=== PATIENT | male | born 1990 | race Caucasian/White ===

== ENCOUNTER 2021-04-14 11:06 | Emergency (ER) | payer MEDICAID, OTHER ==
[~2021-04-14] VITALS: Ht 172.7 cm; Wt 73.0 kg
[2021-04-14] MEDS ORDERED: ONDANSETRON HCL 4MG/2ML INJ IV ONE (11:45)
[2021-04-14] MEDS ORDERED: LORAZEPAM 2MG/ML CPJ IV ONE (11:45)
[2021-04-14] MEDS ORDERED: SODIUM CHLORIDE 0.9% 1,000 ML IV ONE (11:45)
[2021-04-14 11:58] LABS: BASOPHILS % 0.2 % (0.0-2.0); HEMATOCRIT. 46.5 % (42.0-52.0); HEMOGLOBIN. 16.1 g/dL (14.0-18.0); MEAN CORPUSCULAR HEMOGLOBIN 30.3 pg (28.0-32.0); MEAN CORPUSCULAR VOLUME 87.7 fL (80.0-94.0); MONOCYTES % 2.1 % (2.0-8.0); NEUTROPHILS % 86.7 % (40.0-76.0); PLATELET 238 x1000/uL (130-400); RED CELL DISTRIBUTION WIDTH 13.9 % (11.6-14.6)
[2021-04-14 12:02] LABS: CHLORIDE 108 mEq/L (98-107)
[2021-04-14 12:06] LABS: ETHANOL BLOOD < 10 mg/dL
[2021-04-14 12:16] LABS: *AMPHETAMINES SCREEN URINE NEGATIVE (NEGATIVE)
[2021-04-14 12:17] LABS: *BARBITURATES SCREEN URINE NEGATIVE (NEGATIVE); *COCAINE SCREEN URINE PRESUMTIVE POSITIVE (NEGATIVE); CANNABINOID URINE SCREEN PRESUMTIVE POSITIVE (NEGATIVE); METHADONE URINE SCREEN NEGATIVE (NEGATIVE); OPIATES URINE SCREEN PRESUMTIVE POSITIVE (NEGATIVE); PHENCYCLIDINE URINE SCREEN NEGATIVE (NEGATIVE)
[2021-04-14 12:20] LABS: *BENZODIAZEPINES SCREEN URINE PRESUMTIVE POSITIVE (NEGATIVE)
[2021-04-14] MEDS ORDERED: KETOROLAC 30MG/ML VIAL IV ONE (12:30)
[2021-04-14] MEDS ORDERED: LORA-250 MT (12:43)
[2021-04-14] MEDS ORDERED: ONDA4TAB5 MT (12:43)
[2021-04-14] MEDS ORDERED: LOPE2CAP MT (12:43)
[2021-04-14 13:45] VITALS: BP 124/81
== END 2021-04-14 13:49 | disposition home or self-care (01) ==
LOC: ER 11:06
DX: F14.23 Cocaine dependence with withdrawal (principal); F11.23 Opioid dependence with withdrawal; R11.10 Vomiting, unspecified; F16.10 Hallucinogen abuse, uncomplicated; F17.210 Nicotine dependence, cigarettes, uncomplicated
CPT/HCPCS: 36415; 80048; 80305; 80307; 80320; 80329; 85025; 96361; 96374; 96375; 99284; J1885; J2060; J2405; J7030; Z7610; G0480

== ENCOUNTER 2022-07-18 23:09 | Emergency (ER) | payer MEDICAID ==
[~2022-07-18] VITALS: Ht 172.7 cm; Wt 79.0 kg
[~2022-07-18 23:09] MED LIST: LOPE2CAP MT; LORA-250 MT; ONDA4TAB5 MT
[2022-07-18] MEDS ORDERED: KETOROLAC 30MG/ML VIAL IV STA (23:41)
[2022-07-18] MEDS ORDERED: SODIUM CHLORIDE 0.9% 1,000 ML IV ONE (23:45)
[2022-07-19 00:09] LABS: BASOPHILS % 0.7 % (0.0-2.0); EOSINOPHILS % 1.8 % (0.0-5.0); HEMATOCRIT. 40.1 % (42.0-52.0); HEMOGLOBIN. 13.6 g/dL (14.0-18.0); LYMPHOCYTES % 14.7 % (20.0-50.0); MEAN CORPUSCULAR HEMOGLOBIN 29.8 pg (28.0-32.0); MEAN CORPUSCULAR VOLUME 87.9 fL (80.0-94.0); MEAN PLATELET VOLUME 8.7 fl (7.4-10.4); MONOCYTES % 4.1 % (2.0-8.0); NEUTROPHILS % 78.7 % (40.0-76.0); PLATELET 236 x1000/uL (130-400); RED BLOOD CELL COUNT 4.56 mill/uL (4.7-6.1); RED CELL DISTRIBUTION WIDTH 13.8 % (11.6-14.6)
[2022-07-19 00:27] LABS: CHLORIDE 107 mEq/L (98-107)
[2022-07-19 00:35] LABS: ETHANOL BLOOD < 10 mg/dL
[2022-07-19 01:20] LABS: CLARITY URINE CLEAR (CLEAR); COLOR URINE YELLOW (YELLOW); KETONES URINE NEGATIVE (NEGATIVE); LEUKOCYTE ESTERASE URINE NEGATIVE (NEGATIVE); NITRITE URINE NEGATIVE (NEGATIVE); OCCULT BLOOD URINE NEGATIVE (NEGATIVE); PROTEIN URINE NEGATIVE (NEGATIVE); SPECIFIC GRAVITY URINE 1.009 (1.005-1.030); UROBILINOGEN URINE 0.2 E.U./dL (0.2-1.0)
[2022-07-19 01:52] LABS: *AMPHETAMINES SCREEN URINE NEGATIVE (NEGATIVE); *BARBITURATES SCREEN URINE NEGATIVE (NEGATIVE); *BENZODIAZEPINES SCREEN URINE NEGATIVE (NEGATIVE); *COCAINE SCREEN URINE NEGATIVE (NEGATIVE); CANNABINOID URINE SCREEN NEGATIVE (NEGATIVE); METHADONE URINE SCREEN NEGATIVE (NEGATIVE); OPIATES URINE SCREEN PRESUMTIVE POSITIVE (NEGATIVE); PHENCYCLIDINE URINE SCREEN NEGATIVE (NEGATIVE)
[2022-07-19] MEDS ORDERED: IOHEXOL-300 100 ML BOTTLE ONE (03:12)
[2022-07-19] MEDS ORDERED: MORPHINE SULFATE 4 MG/ML CPJ (NOT FOR IM USE) IV NR (04:15)
[2022-07-19 08:12] VITALS: BP 110/60
== END 2022-07-19 08:05 | disposition left against medical advice (07) ==
LOC: ER 07-19 00:01 → CANBEDREQ 07-19 08:16
DX: K56.609 Unspecified intestinal obstruction, unspecified as to partial versus complete obstruction (principal); F14.10 Cocaine abuse, uncomplicated; F11.20 Opioid dependence, uncomplicated
CPT/HCPCS: 36415; 74177; 80053; 80305; 80320; 81003; 83605; 83690; 85025; 86850; 86900; 86901; 96361; 96374; 96375; 99285; J1885; J2270; J7030; Q9967; G0480